=== PATIENT | male | born 1950 | race Caucasian/White ===

== ENCOUNTER 2018-02-05 18:08 | Emergency (ER) | payer OTHER ==
[~2018-02-05] VITALS: Ht 177.8 cm; Wt 90.7 kg
[2018-02-05 18:49] LABS: BASOPHILS ABSOLUTE AUTO 0.01 K/mm3 (0.00-0.23); BASOPHILS PERCENT AUTO 0 % (0-2); EOSINOPHILS ABSOLUTE AUTO 0.01 K/mm3 (0.00-0.68); EOSINOPHILS PERCENT AUTO 0 % (0-6); Hematocrit 45.1 % (37.0-53.0); IMMATURE GRAN ABSOLUTE AUTO 0.03 K/mm3 (0.00-0.10); IMMATURE GRAN PERCENT AUTO 0 % (0-1); LYMPHOCYTES ABSOLUTE AUTO 0.79 K/mm3 (0.84-5.20); LYMPHOCYTES PERCENT AUTO 11 % (21-46); MONOCYTES ABSOLUTE AUTO 0.44 K/mm3 (0.16-1.47); MONOCYTES PERCENT AUTO 6 % (4-13); Mean Corpuscular HGB Conc 33.3 g/dL (31.5-36.5); Mean Corpuscular Volume 90 fL (80-100); Mean Platelet Volume 9.7 fL (9.1-12.4); NEUTROPHILS ABSOLUTE AUTO 5.71 K/mm3 (1.96-9.15); NEUTROPHILS PERCENT AUTO 82 % (41-73); Platelet Count 208 K/mm3 (150-400); RDW Coefficient Variation 14.6 % (11.7-14.2); RDW Standard Deviation 48.6 fL (35.1-46.3); White Blood Cell Count 6.99 K/mm3 (4.00-11.30)
[2018-02-05 19:24] LABS: Alanine Aminotransfer (ALT/SGP 37 U/L (12-78); Alk Phos 92 U/L (50-136); Anion Gap 10 mmol/L (6-16); Aspartate Aminotrans (AST/SGOT 34 U/L (12-37); Bilirubin, Total 0.4 mg/dL (0.1-1.0); Blood Urea Nitrogen 19 mg/dL (8-24); CO2, Blood 23 mmol/L (21-32); Calcium, Blood 9.3 mg/dL (8.5-10.1); Chloride, Blood 101 mmol/L (98-108); Creatinine, Blood 0.95 mg/dL (0.60-1.20); Globulin, Blood 3.9 g/dL (2.2-4.0); Glomerular Filtration Rate >60 (60-); Glucose, Blood 177 mg/dL (70-99); Potassium, Blood 4.2 mmol/L (3.5-5.5); Sodium, Blood 134 mmol/L (136-145); Total Protein, Blood 7.9 g/dL (6.4-8.2); Troponin I <0.015 ng/mL (0.000-0.040)
[2018-02-05] MEDS ORDERED: Aspirin EC81 MG PO (20:16)
[2018-02-05] MEDS ORDERED: ALBU90OI INH (20:16)
[2018-02-05] MEDS ORDERED: ATOR40TA PO (20:17)
[2018-02-05] MEDS ORDERED: Zyrtec10 MG PO (20:17)
[2018-02-05] MEDS ORDERED: FURO20 PO (20:18)
[2018-02-05] MEDS ORDERED: CLOP75 PO (20:18)
[2018-02-05] MEDS ORDERED: Prinivil10 MG PO (20:19)
[2018-02-05] MEDS ORDERED: Allergy Relief10 M1 PO (20:19)
[2018-02-05] MEDS ORDERED: METO25 PO (20:20)
[2018-02-05] MEDS ORDERED: METF500C PO (20:20)
[2018-02-05] MEDS ORDERED: OXYB5 PO (20:21)
[2018-02-05] MEDS ORDERED: NITR.4SL SL (20:21)
[2018-02-05] MEDS ORDERED: Pantoprazole So40 MG PO (20:22)
[2018-02-05] MEDS ORDERED: K-Tab10 MEQ PO (20:23)
[2018-02-05] MEDS ORDERED: CHOL10002 PO (20:23)
[2018-02-05] MEDS ORDERED: Terazosin HCl10 MG PO (20:23)
[2018-02-05] MEDS ORDERED: Advil Pm Liqui1 EACH PO (20:24)
== END 2018-02-05 23:13 | disposition home or self-care (01) ==
LOC: ER 18:08
PROVIDERS: Emergency Medicine
DX: R07.9 Chest pain, unspecified (principal); R06.00 Dyspnea, unspecified; C61 Malignant neoplasm of prostate; Z91.040 Latex allergy status; Z88.8 Allergy status to other drugs, medicaments and biological substances; Z79.899 Other long term (current) drug therapy; Z79.82 Long term (current) use of aspirin; Z79.84 Long term (current) use of oral hypoglycemic drugs; I11.0 Hypertensive heart disease with heart failure; I50.9 Heart failure, unspecified; E11.40 Type 2 diabetes mellitus with diabetic neuropathy, unspecified; I25.10 Atherosclerotic heart disease of native coronary artery without angina pectoris; K21.9 Gastro-esophageal reflux disease without esophagitis; J44.9 Chronic obstructive pulmonary disease, unspecified
CPT/HCPCS: 71046; 71260; 80053; 83880; 84484; 85025; 93005; 93010; 96374; 99284; J2405; Q9967

== ENCOUNTER 2019-02-25 02:39 | Emergency (ER) | payer MEDICARE ==
[~2019-02-25] VITALS: Ht 177.8 cm; Wt 113.4 kg
[~2019-02-25 02:39] MED LIST: ALBU90OI INH; ATOR40TA PO; Advil Pm Liqui1 EACH PO; Allergy Relief10 M1 PO; Aspirin EC81 MG PO; CHOL10002 PO; CLOP75 PO; FURO20 PO; K-Tab10 MEQ PO; METF500C PO; METO25 PO; NITR.4SL SL; OXYB5 PO; Pantoprazole So40 MG PO; Percocet 5-3251 EACH PO; Prinivil10 MG PO; Terazosin HCl10 MG PO; Zyrtec10 MG PO
== END 2019-02-25 03:56 | disposition home or self-care (01) ==
LOC: ER 02:39
DX: G89.29 Other chronic pain (principal); Z91.011 Allergy to milk products; Z88.8 Allergy status to other drugs, medicaments and biological substances; Z79.82 Long term (current) use of aspirin; Z79.899 Other long term (current) drug therapy; Z85.46 Personal history of malignant neoplasm of prostate
CPT/HCPCS: 96372; 99283-25; J1885